=== PATIENT | female | born 1965 | race Two or more races ===

== ENCOUNTER 2024-03-08 13:07 | Outpatient (AMB) | payer BC, SELFPAY ==
[2024-03-08 13:18] VITALS: BP 136/71; PULSE 84; RESP 18; TEMP 35.9; O2SAT 95; BMI 30.2
--- NOTE | 2024-03-08 13:18 | PD.GSCLVISIT ---
[facility] - [facility] 03/08/24 13:18 Height 1.55 m Height Method Stated Weight 72.688 kg Weight Measurement Method Standing Scale BMI 30.2 BP 136/71 H Blood Pressure Source Automatic Cuff Blood Pressure Location Right Upper Arm Position Sitting Respiration 18 Pulse 84 Pulse Source Monitor Temp 96.7 F L Temp Source Temporal Artery Scan Pulse Oximetry (%) 95 Oxygen Delivery Method Room Air Med/Allergies Allergies & Medications Allergies nitrofurantoin [From Macrobid] Allergy (Mild, Verified 03/08/24 13:19) Fever Medication Reconciliation losartan 50 mg tablet 50 mg PO QDAY 06/11/19 [History Confirmed 03/08/24] metformin 1,000 mg tablet 1,000 mg PO BIDWM Diabetes 06/11/19 [History Confirmed 03/08/24] atorvastatin 10 mg tablet 10 mg PO QDAY 05/04/22 [History Confirmed 03/08/24] flecainide 100 mg tablet 100 mg PO BID 05/04/22 [History Confirmed 03/08/24] aspirin 81 mg tablet,delayed release 81 mg PO QDAY 02/24/24 [History Confirmed 03/08/24] oxycodone-acetaminophen 5 mg-325 mg tablet (Endocet) 1 tab PO Q6H PRN pain #10 tabs 03/02/24 [Rx Confirmed 03/08/24] MA Intake Visit Data Collection New Patient or Established: Established Patient (seen at [facility] within 3 years) Seen by Clinical Staff ONLY (RN/MA): No Pain Present Currently: No (SORENESS) Pain Location: Abdomen Pain scale:: 1 Blend Technician Required: No PCP or OBGYN visit in last 3 months: Yes Hx Now: No Do You Feel Safe at Home: Yes Authorities Contacted: N/A Smoking Status Smoking Status: Never smoker Immunization / Flu Flu Vaccine in the Last 12 Months: No Flu Vaccine Exclusion Criteria: No Exclusion Criteria Past Medical History Past Medical History NEUROLOGIC: Negative Neurological Disorders or Seizures CARDIAC: Positive Cardiac Disorders, Atrial Fibrillation, Hypercholesterolemia and Hypertension; Negative Congestive Heart Failure RESPIRATORY: Negative Chronic Obstructive Pulmonary Disease (COPD) GASTROINTESTINAL: Positive Gastrointestinal Disorders, Gall Bladder Disease, Diverticulitis and Obesity; Negative Hepatitis GENITOURINARY: Negative Genitourinary Disorders or Renal Disease REPRODUCTIVE: Negative Previous Pregnancies MUSCULOSKELETAL: Positive Arthritis ENDOCRINE: Positive Endocrine Disorders and Diabetes Mellitus Type 2; Negative Diabetes Mellitus Type 1 HEMATOLOGIC: Negative Blood Disorders OTHER HISTORY: Positive Hospitalization (A fib, surgery) and Chicken Pox; Negative Autoimmune Disease, Shingles, Blood Transfusions, Blood Transfusion Reaction, Anesthesia Reactions or Cancer Family History FAMILY HISTORY: Positive Family Cardiac Disorders, Family Cancer and Family Surgery; Negative Family Psychiatric Problems, Family Respiratory Disorders, Family Gastrointestinal Problems or Family Anesthesia Reaction Surgical History SURGICAL: Positive Bowel Surgery (colon resection) and Hysterectomy (BSO) Social History SMOKING STATUS: Smoking status: Never smoker ALCOHOL: Alcohol Intake: Never ALCOHOL FREQUENCY: Alcohol Intake Frequency: A Few Times a Month HOUSING: Housing: House LIVES WITH: Lives With: Family HPI HPI Narrative 58F s/p lap ana luisa 02/29/24 presenting for follow up. Pt reports for the last few days she has had intermittent bleeding from one edge of her epigastric incision; otherwise she feels well with pain controlled, no nausea, tolerating diet, having bouts of diarrhea which vary based on what she eats. No fever or jaundice ROS Review of Systems Systems Reviewed: All systems reviewed, normal except as documented Objective/Exam General General Appearance: alert, cooperative and well groomed Resp Respiratory exam: Absent respiratory distress Abdominal Abdominal exam: Present soft and incision (epigastric incision with ecchymosis similar to prior exam. At the left lateral aspect of the incision there is raw skin which appears erythematous, not actively bleeding now but I applied silver nitrate cautery to the area); Absent distention or tenderness Results Pathology of gallbladder: gangrenous acute and chronic cholecystitis with cholelithiasis Assessment & Plan Diagnosis / Problem List (1) Gangrenous cholecystitis: Status: Acute Plan 58F s/p lap ana luisa for gangrenous cholecystitis 02/28, recovering well overall with superficial bleeding of epigastric incision, cauterized today F/u in 2 weeks if needed Avoid strenuous activity for 6 weeks postop Orders: Orders Silver nitrate applicator topical stick Today Office Procedures GNS Level of Care Nursing/Assessment Patient Status: Established Patient Nursing Assessment/Reassesment: Medication Reconciliation, Update PMH in EMR and Vital Signs Coordination of Care: Complex Care and Chronic Disease 1-5, Education Complex Pt/Fam, Consent,records obtained, informed consent and Staff clarify orders Established Patient Charge Established Patient Point Assignment: 90 Established Patient Point Charge: EP Level 3 (80-115) Patient Portal Questionaires Social History Living Situation History Housing: House Tobacco History Smoking Status: Never smoker Alcohol History Alcohol Intake: Never Alcohol Intake Frequency: A Few Times a Month Domestic Abuse History Do You Feel Safe at Home: Yes Review of Systems Report any current symptoms Only answer those that you have currently: Past Medical History Past Medical History Have you ever been diagnosed with any of the following: Neurological Problems Seizures: No Cardiology Problems Atrial Fibrillation: Yes Hypercholesterolemia: Yes Congestive Heart Failure: No Hypertension: Yes Respiratory Problems Chronic Obstructive Pulmonary Disease (COPD): No Stomache/Intestinal Problems Hepatitis: No Gall Bladder Disease: Yes Diverticulitis: Yes Obesity: Yes Genital/Urinary Problems Renal Disease: No Reproductive Problems Previous Pregnancies: No Musculoskeletal Problems Arthritis: Yes Endocrine Problems Diabetes Mellitus Type 1: No Diabetes Mellitus Type 2: Yes Other Problems Hospitalization: Yes (A fib, surgery) Autoimmune Disease: No Shingles: No Blood Transfusions: No Blood Transfusion Reaction: No Anesthesia Reactions: No Chicken Pox: Yes Cancer: No Surgical History Hysterectomy: Yes (BSO)
== END 2024-03-08 13:39 | disposition home or self-care (01) ==
LOC: HODSRG 13:07
PROVIDERS: Supervising Provider Surgery; Visit Provider Surgery
DX: Z09 Encounter for follow-up examination after completed treatment for conditions other than malignant neoplasm (principal); Z90.49 Acquired absence of other specified parts of digestive tract
CPT/HCPCS: 99213; A9270; G0463

== ENCOUNTER 2024-03-19 10:06 | Outpatient (AMB) | payer BC, SELFPAY ==
[2024-03-19 10:22] VITALS: BP 133/74; PULSE 78; RESP 18; TEMP 36.3; O2SAT 99; BMI 30.3
--- NOTE | 2024-03-19 10:22 | PD.GSCLVISIT ---
Vital Signs - [facility] 03/19/24 10:22 Height 1.55 m Height Method Stated Weight 72.802 kg Weight Measurement Method Standing Scale BMI 30.3 BP 133/74 H Blood Pressure Source Automatic Cuff Blood Pressure Location Right Upper Arm Position Sitting Respiration 18 Pulse 78 Pulse Source Monitor Temp 97.4 F Temp Source Temporal Artery Scan Pulse Oximetry (%) 99 Oxygen Delivery Method Room Air Med/Allergies Allergies & Medications Allergies nitrofurantoin [From Macrobid] Allergy (Mild, Verified 03/19/24 10:22) Fever Medication Reconciliation losartan 50 mg tablet 50 mg PO QDAY 06/11/19 [History Confirmed 03/19/24] metformin 1,000 mg tablet 1,000 mg PO BIDWM Diabetes 06/11/19 [History Confirmed 03/19/24] atorvastatin 10 mg tablet 10 mg PO QDAY 05/04/22 [History Confirmed 03/19/24] flecainide 100 mg tablet 100 mg PO BID 05/04/22 [History Confirmed 03/19/24] aspirin 81 mg tablet,delayed release 81 mg PO QDAY 02/24/24 [History Confirmed 03/19/24] oxycodone-acetaminophen 5 mg-325 mg tablet (Endocet) 1 tab PO Q6H PRN pain #10 tabs 03/02/24 [Rx Confirmed 03/19/24] MA Intake Visit Data Collection New Patient or Established: Established Patient (seen at [facility] within 3 years) Reason for Visit:: F/U ON ABDOMEN PAIN Pain Present Currently: Yes Pain Location: Abdomen Pain scale:: 1 Pain Scale Used: Barker-Hawkins/Numerical Nursing Staffing Coordinator Required: No PCP or OBGYN visit in last 3 months: Yes Hx Now: No Do You Feel Safe at Home: Yes Authorities Contacted: N/A Smoking Status Smoking Status: Never smoker Immunization / Flu Flu Vaccine in the Last 12 Months: No Flu Vaccine Exclusion Criteria: No Exclusion Criteria Past Medical History Past Medical History NEUROLOGIC: Negative Neurological Disorders or Seizures CARDIAC: Positive Cardiac Disorders, Atrial Fibrillation, Hypercholesterolemia and Hypertension; Negative Congestive Heart Failure RESPIRATORY: Negative Chronic Obstructive Pulmonary Disease (COPD) GASTROINTESTINAL: Positive Gastrointestinal Disorders, Gall Bladder Disease, Diverticulitis and Obesity; Negative Hepatitis GENITOURINARY: Negative Genitourinary Disorders or Renal Disease REPRODUCTIVE: Negative Previous Pregnancies MUSCULOSKELETAL: Positive Arthritis ENDOCRINE: Positive Endocrine Disorders and Diabetes Mellitus Type 2; Negative Diabetes Mellitus Type 1 HEMATOLOGIC: Negative Blood Disorders OTHER HISTORY: Positive Hospitalization (A fib, surgery) and Chicken Pox; Negative Autoimmune Disease, Shingles, Blood Transfusions, Blood Transfusion Reaction, Anesthesia Reactions or Cancer Family History FAMILY HISTORY: Positive Family Cardiac Disorders, Family Cancer and Family Surgery; Negative Family Psychiatric Problems, Family Respiratory Disorders, Family Gastrointestinal Problems or Family Anesthesia Reaction Surgical History SURGICAL: Positive Bowel Surgery (colon resection) and Hysterectomy (BSO) Social History SMOKING STATUS: Smoking status: Never smoker SUBSTANCE USE: Substance use type: does not use ALCOHOL: Alcohol Intake: Never ALCOHOL FREQUENCY: Alcohol Intake Frequency: A Few Times a Month HOUSING: Housing: House LIVES WITH: Lives With: Family Travel Risk Travel Hx Recent Travel: No HPI HPI Narrative 58F s/p lap ana luisa 02/29/24 presenting for follow up. Pt had another episode of bleeding from her epigastric incision last week, she has been covering it with gauze and as of today there is scant bleeding. She feels well otherwise and is planning to return to work Thurs ROS Review of Systems Systems Reviewed: All systems reviewed, normal except as documented Objective/Exam General General Appearance: alert, cooperative and well groomed Resp Respiratory exam: Absent respiratory distress Abdominal Abdominal exam: Present soft and incision (epigastric incision with dehiscence at the left aspect, no active bleeding, no surrounding erythema, silver nitrate reapplied); Absent distention or tenderness Assessment & Plan Diagnosis / Problem List (1) Gangrenous cholecystitis: Status: Acute Plan 58F s/p lap ana luisa 02/29/24 presenting for follow up, recovering well overall F/u as needed Orders: Orders Silver nitrate applicator topical stick Today Office Procedures GNS Level of Care Nursing/Assessment Patient Status: Established Patient Nursing Assessment/Reassesment: Medication Reconciliation, Update PMH in EMR and Vital Signs Coordination of Care: Complex Care and Chronic Disease 1-5, Education Complex Pt/Fam, Consent,records obtained, informed consent, Results/Orders obtained and Staff clarify orders Established Patient Charge Established Patient Point Assignment: 95 Established Patient Point Charge: EP Level 3 (80-115) Surgical Proc/IM SQ injection Minor Surgical Procedure: Yes (SILVER NITRATE) Medication Given Medication Given Medication Given: Yes Documented Dose Given: 1 Route: Infiitration Office Meds silver nitrate applicators 75 %-25 % topical stick Performing Provider: Emily Case MD Performing Location: [facility] Administered by: Emily Case MD on 03/19/24 11:39 Dose Route Admin Location Dispensed Lot Number Expiration Date FORMERLY NAMED [facility] [employer] 1 ea topical 1 ea [id number] 06/22/24 [address]-6 [employer] Patient Portal Questionaires Social History Living Situation History Housing: House Tobacco History Smoking Status: Never smoker Alcohol History Alcohol Intake: Never Alcohol Intake Frequency: A Few Times a Month Domestic Abuse History Do You Feel Safe at Home: Yes Review of Systems Report any current symptoms Only answer those that you have currently: Past Medical History Past Medical History Have you ever been diagnosed with any of the following: Neurological Problems Seizures: No Cardiology Problems Atrial Fibrillation: Yes Hypercholesterolemia: Yes Congestive Heart Failure: No Hypertension: Yes Respiratory Problems Chronic Obstructive Pulmonary Disease (COPD): No Stomache/Intestinal Problems Hepatitis: No Gall Bladder Disease: Yes Diverticulitis: Yes Obesity: Yes Genital/Urinary Problems Renal Disease: No Reproductive Problems Previous Pregnancies: No Musculoskeletal Problems Arthritis: Yes Endocrine Problems Diabetes Mellitus Type 1: No Diabetes Mellitus Type 2: Yes Other Problems Hospitalization: Yes (A fib, surgery) Autoimmune Disease: No Shingles: No Blood Transfusions: No Blood Transfusion Reaction: No Anesthesia Reactions: No Chicken Pox: Yes Cancer: No Surgical History Hysterectomy: Yes (BSO)
== END 2024-03-19 11:04 | disposition home or self-care (01) ==
LOC: HODSRG 10:06
PROVIDERS: Supervising Provider Surgery; Visit Provider Surgery
DX: T81.31XA Disruption of external operation (surgical) wound, not elsewhere classified, initial encounter (principal); Y84.9 Medical procedure, unspecified as the cause of abnormal reaction of the patient, or of later complication, without mention of misadventure at the time of the procedure
CPT/HCPCS: 17250; 99213; A9270; G0463

== ENCOUNTER 2024-03-26 09:33 | Outpatient (AMB) | payer BC, SELFPAY ==
[2024-03-26 09:56] VITALS: BP 126/75; PULSE 81; RESP 19; TEMP 36.2; O2SAT 96
--- NOTE | 2024-03-26 09:56 | GSCOFFNT_ITS ---
Vital Signs - [facility] 03/26/24 09:56 Height 1.55 m Height Method Stated Weight 72.263 kg Weight Measurement Method Standing Scale BMI 30.0 BP 126/75 Blood Pressure Source Automatic Cuff Blood Pressure Location Right Upper Arm Position Sitting Respiration 19 Pulse 81 Pulse Source Monitor Temp 97.1 F Temp Source Temporal Artery Scan Pulse Oximetry (%) 96 Oxygen Delivery Method Room Air Med/Allergies Allergies & Medications Allergies nitrofurantoin [From Macrobid] Allergy (Mild, Verified 03/26/24 09:56) Fever Medication Reconciliation losartan 50 mg tablet 50 mg PO QDAY 06/11/19 [History Confirmed 03/26/24] metformin 1,000 mg tablet 1,000 mg PO BIDWM Diabetes 06/11/19 [History Confirmed 03/26/24] atorvastatin 10 mg tablet 10 mg PO QDAY 05/04/22 [History Confirmed 03/26/24] flecainide 100 mg tablet 100 mg PO BID 05/04/22 [History Confirmed 03/26/24] aspirin 81 mg tablet,delayed release 81 mg PO QDAY 02/24/24 [History Confirmed 03/26/24] oxycodone-acetaminophen 5 mg-325 mg tablet (Endocet) 1 tab PO Q6H PRN pain #10 tabs 03/02/24 [Rx Confirmed 03/26/24] cephalexin 500 mg tablet 500 mg PO Q12H #10 tabs 03/23/24 [Rx Confirmed 03/26/24] MA Intake Visit Data Collection New Patient or Established: Established Patient (seen at [facility] within 3 years) Seen by Clinical Staff ONLY (RN/MA): No Pain Present Currently: No Pinion And Wheel Truer Required: No PCP or OBGYN visit in last 3 months: Yes Hx Now: No Do You Feel Safe at Home: Yes Authorities Contacted: N/A Smoking Status Smoking Status: Never smoker Immunization / Flu Flu Vaccine in the Last 12 Months: No Flu Vaccine Exclusion Criteria: No Exclusion Criteria Past Medical History Past Medical History NEUROLOGIC: Negative Neurological Disorders or Seizures CARDIAC: Positive Cardiac Disorders, Atrial Fibrillation, Hypercholesterolemia and Hypertension; Negative Congestive Heart Failure RESPIRATORY: Negative Chronic Obstructive Pulmonary Disease (COPD) GASTROINTESTINAL: Positive Gastrointestinal Disorders, Gall Bladder Disease, Diverticulitis and Obesity; Negative Hepatitis GENITOURINARY: Negative Genitourinary Disorders or Renal Disease REPRODUCTIVE: Negative Previous Pregnancies MUSCULOSKELETAL: Positive Arthritis ENDOCRINE: Positive Endocrine Disorders and Diabetes Mellitus Type 2; Negative Diabetes Mellitus Type 1 HEMATOLOGIC: Negative Blood Disorders OTHER HISTORY: Positive Hospitalization (A fib, surgery) and Chicken Pox; Negative Autoimmune Disease, Shingles, Blood Transfusions, Blood Transfusion Reaction, Anesthesia Reactions or Cancer Family History FAMILY HISTORY: Positive Family Cardiac Disorders, Family Cancer and Family Surgery; Negative Family Psychiatric Problems, Family Respiratory Disorders, Family Gastrointestinal Problems or Family Anesthesia Reaction Surgical History SURGICAL: Positive Bowel Surgery (colon resection) and Hysterectomy (BSO) Social History SMOKING STATUS: Smoking status: Never smoker ALCOHOL: Alcohol Intake: Never ALCOHOL FREQUENCY: Alcohol Intake Frequency: A Few Times a Month HOUSING: Housing: House LIVES WITH: Lives With: Family HPI HPI Narrative 59F s/p anastacia ana luisa 02/29/24 presenting for follow up. Last week pt noted her epigastric incision opened a bit more, it is not draining or bleeding but because of mild surrounding erythema and necrotic tissue I prescribed PO antibio tics which she is taking still. She feels overall well with no complaints, has returned to work ROS Review of Systems Systems Reviewed: All systems reviewed, normal except as documented Objective/Exam General General Appearance: alert, cooperative and well groomed Resp Respiratory exam: Absent respiratory distress Abdominal Abdominal exam: Present soft and incision (epigastric incision with partial superficial dehiscence at the left lateral aspect, minimal necrotic tissue which was debrided bluntly, wound irrigated, mild surrounding erythema, no purulence or fluctuance); Absent distention or tenderness Assessment & Plan Diagnosis / Problem List (1) Wound dehiscence, surgical: Status: Acute Assessment & Plan: 59F s/p lap ana luisa 02/29/24 with superficial dehiscence of epigastric incision. As there is mild erythema and there was some necrotic tissue in the wound I explained to pt it is preferable to pack the wound rather than to suture it and cause infection. I instructed how to perform wet-dry packing changes and pt expressed understanding, will follow up next week Office Procedures GNS Level of Care Nursing/Assessment Patient Status: Established Patient Nursing Assessment/Reassesment: Medication Reconciliation, Update PMH in EMR and Vital Signs Coordination of Care: Complex Care and Chronic Disease 1-5, Education Complex Pt/Fam, Consent,records obtained, informed consent and Staff clarify orders Established Patient Charge Established Patient Point Assignment: 90 Established Patient Point Charge: EP Level 3 (80-115) Patient Portal Questionaires Social History Living Situation History Housing: House Tobacco History Smoking Status: Never smoker Alcohol History Alcohol Intake: Never Alcohol Intake Frequency: A Few Times a Month Domestic Abuse History Do You Feel Safe at Home: Yes Review of Systems Report any current symptoms Only answer those that you have currently: Past Medical History Past Medical History Have you ever been diagnosed with any of the following: Neurological Problems Seizures: No Cardiology Problems Atrial Fibrillation: Yes Hypercholesterolemia: Yes Congestive Heart Failure: No Hypertension: Yes Respiratory Problems Chronic Obstructive Pulmonary Disease (COPD): No Stomache/Intestinal Problems Hepatitis: No Gall Bladder Disease: Yes Diverticulitis: Yes Obesity: Yes Genital/Urinary Problems Renal Disease: No Reproductive Problems Previous Pregnancies: No Musculoskeletal Problems Arthritis: Yes Endocrine Problems Diabetes Mellitus Type 1: No Diabetes Mellitus Type 2: Yes Other Problems Hospitalization: Yes (A fib, surgery) Autoimmune Disease: No Shingles: No Blood Transfusions: No Blood Transfusion Reaction: No Anesthesia Reactions: No Chicken Pox: Yes Cancer: No Surgical History Hysterectomy: Yes (BSO)
== END 2024-03-26 10:12 | disposition home or self-care (01) ==
LOC: HODSRG 09:33
PROVIDERS: Supervising Provider Surgery; Visit Provider Surgery
DX: T81.31XD Disruption of external operation (surgical) wound, not elsewhere classified, subsequent encounter (principal); Y84.9 Medical procedure, unspecified as the cause of abnormal reaction of the patient, or of later complication, without mention of misadventure at the time of the procedure
CPT/HCPCS: 99213; G0463

== ENCOUNTER 2024-04-05 10:49 | Outpatient (AMB) | payer BC, SELFPAY ==
--- NOTE | 2024-04-05 11:00 | PD.GSCLVISIT ---
Vital [facility] - [facility] 04/05/24 11:01 Height 1.55 m Height Method Stated Weight 71.668 kg Weight Measurement Method Standing Scale BMI 29.8 BP 127/77 Blood Pressure Source Automatic Cuff Blood Pressure Location Right Upper Arm Position Sitting Respiration 18 Pulse 75 Pulse Source Monitor Temp 97.5 F Temp Source Temporal Artery Scan Pulse Oximetry (%) 96 Oxygen Delivery Method Room Air Med/Allergies Allergies & Medications Allergies nitrofurantoin [From Macrobid] Allergy (Mild, Verified 04/05/24 11:02) Fever Medication Reconciliation losartan 50 mg tablet 50 mg PO QDAY 06/11/19 [History Confirmed 04/05/24] metformin 1,000 mg tablet 1,000 mg PO BIDWM Diabetes 06/11/19 [History Confirmed 04/05/24] atorvastatin 10 mg tablet 10 mg PO QDAY 05/04/22 [History Confirmed 04/05/24] flecainide 100 mg tablet 100 mg PO BID 05/04/22 [History Confirmed 04/05/24] aspirin 81 mg tablet,delayed release 81 mg PO QDAY 02/24/24 [History Confirmed 04/05/24] oxycodone-acetaminophen 5 mg-325 mg tablet (Endocet) 1 tab PO Q6H PRN pain #10 tabs 03/02/24 [Rx Confirmed 04/05/24] cephalexin 500 mg tablet 500 mg PO Q12H #10 tabs 03/23/24 [Rx Confirmed 04/05/24] MA Intake Visit Data Collection New Patient or Established: Established Patient (seen at [facility] within 3 years) Seen by Clinical Staff ONLY (RN/MA): No Reason for Visit:: F/U WOUND Pain Present Currently: No Pain scale:: 0 Rv Mechanic Required: No PCP or OBGYN visit in last 3 months: Yes Hx Now: No Do You Feel Safe at Home: Yes Authorities Contacted: N/A Smoking Status Smoking Status: Never smoker Immunization / Flu Flu Vaccine in the Last 12 Months: No Flu Vaccine Exclusion Criteria: Already Received Past Medical History Past Medical History NEUROLOGIC: Negative Neurological Disorders or Seizures CARDIAC: Positive Cardiac Disorders, Atrial Fibrillation, Hypercholesterolemia and Hypertension; Negative Congestive Heart Failure RESPIRATORY: Negative Chronic Obstructive Pulmonary Disease (COPD) GASTROINTESTINAL: Positive Gastrointestinal Disorders, Gall Bladder Disease, Diverticulitis and Obesity; Negative Hepatitis GENITOURINARY: Negative Genitourinary Disorders or Renal Disease REPRODUCTIVE: Negative Previous Pregnancies MUSCULOSKELETAL: Positive Arthritis ENDOCRINE: Positive Endocrine Disorders and Diabetes Mellitus Type 2; Negative Diabetes Mellitus Type 1 HEMATOLOGIC: Negative Blood Disorders OTHER HISTORY: Positive Hospitalization (A fib, surgery) and Chicken Pox; Negative Autoimmune Disease, Shingles, Blood Transfusions, Blood Transfusion Reaction, Anesthesia Reactions or Cancer Family History FAMILY HISTORY: Positive Family Cardiac Disorders, Family Cancer and Family Surgery; Negative Family Psychiatric Problems, Family Respiratory Disorders, Family Gastrointestinal Problems or Family Anesthesia Reaction Surgical History SURGICAL: Positive Bowel Surgery (colon resection) and Hysterectomy (BSO) Social History SMOKING STATUS: Smoking status: Never smoker ALCOHOL: Alcohol Intake: Never ALCOHOL FREQUENCY: Alcohol Intake Frequency: A Few Times a Month HOUSING: Housing: House LIVES WITH: Lives With: Family HPI HPI Narrative 59F s/p anastacia ana luisa 02/29/24 presenting for follow up of her epigastric incision. Pt has been packing the wound daily at my instruction, reports feeling well overall with no new complaints ROS Review of Systems Systems Reviewed: All systems reviewed, normal except as documented Objective/Exam General General Appearance: alert, cooperative and well groomed Resp Respiratory exam: Absent respiratory distress Abdominal Abdominal exam: Present soft and incision (epigastric incision with superficial dehiscence at the left lateral aspect; no necrotic tissue, minimal surrounding erythema and minimal serosanguinous drainage on gauze); Absent distention or tenderness Assessment & Plan Diagnosis / Problem List (1) Wound dehiscence, surgical: Status: Acute Assessment & Plan: 59F s/p lap ana luisa 02/29/24 with small dehiscence of epigastric incision, otherwise recovering well. Today I repeated silver nitrate to the wound to facilitate healing, will follow up in 3 weeks Orders: Orders Silver nitrate applicator topical stick Today Office Procedures GNS Level of Care Nursing/Assessment Patient Status: Established Patient Nursing Assessment/Reassesment: Medication Reconciliation, Update PMH in EMR and Vital Signs Coordination of Care: Complex Care and Chronic Disease 1-5, Education Complex Pt/Fam, Consent,records obtained, informed consent and Staff clarify orders Established Patient Charge Established Patient Point Assignment: 90 Established Patient Point Charge: EP Level 3 (80-115) Surgical Proc/IM SQ injection Minor Surgical Procedure: Yes (SILVER NITRATE) Medication Given Medication Given Medication Given: Yes Documented Dose Given: 1 Route: Infiitration Office Meds silver nitrate applicators 75 %-25 % topical stick Performing Provider: Emily Case MD Performing Location: [facility] Administered by: Emily Case MD on 04/05/24 11:42 Dose Route Admin Location Dispensed Lot Number Expiration Date [facility] Bar[employer] Line [employer] 1 ea topical 1 ea [id number] 06/22/24 [id number] [employer] Patient Portal Questionaires Social History Living Situation History Housing: House Tobacco History Smoking Status: Never smoker Alcohol History Alcohol Intake: Never Alcohol Intake Frequency: A Few Times a Month Domestic Abuse History Do You Feel Safe at Home: Yes Review of Systems Report any current symptoms Only answer those that you have currently: Past Medical History Past Medical History Have you ever been diagnosed with any of the following: Neurological Problems Seizures: No Cardiology Problems Atrial Fibrillation: Yes Hypercholesterolemia: Yes Congestive Heart Failure: No Hypertension: Yes Respiratory Problems Chronic Obstructive Pulmonary Disease (COPD): No Stomache/Intestinal Problems Hepatitis: No Gall Bladder Disease: Yes Diverticulitis: Yes Obesity: Yes Genital/Urinary Problems Renal Disease: No Reproductive Problems Previous Pregnancies: No Musculoskeletal Problems Arthritis: Yes Endocrine Problems Diabetes Mellitus Type 1: No Diabetes Mellitus Type 2: Yes Other Problems Hospitalization: Yes (A fib, surgery) Autoimmune Disease: No Shingles: No Blood Transfusions: No Blood Transfusion Reaction: No Anesthesia Reactions: No Chicken Pox: Yes Cancer: No Surgical History Hysterectomy: Yes (BSO)
[2024-04-05 11:01] VITALS: BP 127/77; PULSE 75; RESP 18; TEMP 36.4; O2SAT 96; BMI 29.8
== END 2024-04-05 11:21 | disposition home or self-care (01) ==
LOC: HODSRG 10:49
PROVIDERS: Supervising Provider Surgery; Visit Provider Surgery
DX: T81.31XA Disruption of external operation (surgical) wound, not elsewhere classified, initial encounter (principal); Y84.9 Medical procedure, unspecified as the cause of abnormal reaction of the patient, or of later complication, without mention of misadventure at the time of the procedure
CPT/HCPCS: 17250; 99213; A9270; G0463

== ENCOUNTER 2024-04-26 09:52 | Outpatient (AMB) | payer BC, SELFPAY ==
[2024-04-26 10:01] VITALS: BP 150/73; PULSE 79; RESP 18; TEMP 36.3; O2SAT 97; BMI 29.9
--- NOTE | 2024-04-26 10:01 | GSCOFFNT_ITS ---
Vital Signs - [facility] 04/26/24 10:01 Height 1.55 m Height Method Stated Weight 71.838 kg Weight Measurement Method Standing Scale BMI 29.9 BP 150/73 H Blood Pressure Source Automatic Cuff Blood Pressure Location Right Upper Arm Position Sitting Respiration 18 Pulse 79 Pulse Source Monitor Temp 97.3 F Temp Source Oral Pulse Oximetry (%) 97 Oxygen Delivery Method Room Air Med/Allergies Allergies & Medications Allergies nitrofurantoin [From Macrobid] Allergy (Mild, Verified 04/26/24 10:03) Fever Medication Reconciliation losartan 50 mg tablet 50 mg PO QDAY 06/11/19 [History Confirmed 04/26/24] metformin 1,000 mg tablet 1,000 mg PO BIDWM Diabetes 06/11/19 [History Confirmed 04/26/24] atorvastatin 10 mg tablet 10 mg PO QDAY 05/04/22 [History Confirmed 04/26/24] flecainide 100 mg tablet 100 mg PO BID 05/04/22 [History Confirmed 04/26/24] aspirin 81 mg tablet,delayed release 81 mg PO QDAY 02/24/24 [History Confirmed 04/26/24] oxycodone-acetaminophen 5 mg-325 mg tablet (Endocet) 1 tab PO Q6H PRN pain #10 tabs 03/02/24 [Rx Confirmed 04/26/24] cephalexin 500 mg tablet 500 mg PO Q12H #10 tabs 03/23/24 [Rx Confirmed 04/26/24] MA Intake Visit Data Collection New Patient or Established: Established Patient (seen at [facility] within 3 years) Reason for Visit:: F/U ON WOUND Pain Present Currently: Yes Pain Location: Abdomen Pain scale:: 3 (ACHING PAIN) Pain Scale Used: BarkerMaynor/Numerical Palliative Care Specialist Required: No PCP or OBGYN visit in last 3 months: Yes Hx Now: No Do You Feel Safe at Home: Yes Authorities Contacted: N/A Smoking Status Smoking Status: Never smoker Immunization / Flu Flu Vaccine in the Last 12 Months: No Flu Vaccine Exclusion Criteria: No Exclusion Criteria Past Medical History Past Medical History NEUROLOGIC: Negative Neurological Disorders or Seizures CARDIAC: Positive Cardiac Disorders, Atrial Fibrillation, Hypercholesterolemia and Hypertension; Negative Congestive Heart Failure RESPIRATORY: Negative Chronic Obstructive Pulmonary Disease (COPD) GASTROINTESTINAL: Positive Gastrointestinal Disorders, Gall Bladder Disease, Di verticulitis and Obesity; Negative Hepatitis GENITOURINARY: Negative Genitourinary Disorders or Renal Disease REPRODUCTIVE: Negative Previous Pregnancies MUSCULOSKELETAL: Positive Arthritis ENDOCRINE: Positive Endocrine Disorders and Diabetes Mellitus Type 2; Negative Diabetes Mellitus Type 1 HEMATOLOGIC: Negative Blood Disorders OTHER HISTORY: Positive Hospitalization (A fib, surgery) and Chicken Pox; Negative Autoimmune Disease, Shingles, Blood Transfusions, Blood Transfusion Reaction, Anesthesia Reactions or Cancer Family History FAMILY HISTORY: Positive Family Cardiac Disorders, Family Cancer and Family Surgery; Negative Family Psychiatric Problems, Family Respiratory Disorders, Family Gastrointestinal Problems or Family Anesthesia Reaction Surgical History SURGICAL: Positive Bowel Surgery (colon resection) and Hysterectomy (BSO) Social History SMOKING STATUS: Smoking status: Never smoker ALCOHOL: Alcohol Intake: Never ALCOHOL FREQUENCY: Alcohol Intake Frequency: A Few Times a Month HOUSING: Housing: House LIVES WITH: Lives With: Family HPI HPI Narrative 59F s/p anastacia orosco 02/29/24 presenting for follow up of her epigastric incision. Pt reports feeling well overall, the wound is lashaun a bit and is not currently draining. She stopped covering it because the dressings were becoming bothersome. Pt reports still having some pain with deep breaths but otherwise has no complaints ROS Review of Systems Systems Reviewed: All systems reviewed, normal except as documented Objective/Exam General General Appearance: alert, cooperative and well groomed Resp Respiratory exam: Absent respiratory distress Abdominal Abdominal exam: Present soft and incision (epigastric incision with superficial dehiscence at left lateral aspect, no surrounding erythema, no fluctuance or tenderness. Steri strip placed); Absent distention or tenderness Assessment & Plan Diagnosis / Problem List (1) Wound dehiscence, surgical: Status: Acute Assessment & Plan: 59F s/p anastacia orosco 02/29/24 presenting for follow up of her epigastric incision, recovering well overall with steri strip placed Plan: Follow up as needed Office Procedures GNS Level of Care Nursing/Assessment Patient Status: Established Patient Nursing Assessment/Reassesment: Medication Reconciliation, Update PMH in EMR and Vital Signs Coordination of Care: Complex Care and Chronic Disease 1-5, Education Complex Pt/Fam, Consent,records obtained, informed consent, Results/Orders obtained and Staff clarify orders Established Patient Charge Established Patient Point Assignment: 95 Established Patient Point Charge: EP Level 3 (80-115) Patient Portal Questionaires Social History Living Situation History Housing: House Tobacco History Smoking Status: Never smoker Alcohol History Alcohol Intake: Never Alcohol Intake Frequency: A Few Times a Month Domestic Abuse History Do You Feel Safe at Home: Yes Review of Systems Report any current symptoms Only answer those that you have currently: Past Medical History Past Medical History Have you ever been diagnosed with any of the following: Neurological Problems Seizures: No Cardiology Problems Atrial Fibrillation: Yes Hypercholesterolemia: Yes Congestive Heart Failure: No Hypertension: Yes Respiratory Problems Chronic Obstructive Pulmonary Disease (COPD): No Stomache/Intestinal Problems Hepatitis: No Gall Bladder Disease: Yes Diverticulitis: Yes Obesity: Yes Genital/Urinary Problems Renal Disease: No Reproductive Problems Previous Pregnancies: No Musculoskeletal Problems Arthritis: Yes Endocrine Problems Diabetes Mellitus Type 1: No Diabetes Mellitus Type 2: Yes Other Problems Hospitalization: Yes (A fib, surgery) Autoimmune Disease: No Shingles: No Blood Transfusions: No Blood Transfusion Reaction: No Anesthesia Reactions: No Chicken Pox: Yes Cancer: No Surgical History Hysterectomy: Yes (BSO)
== END 2024-04-26 10:10 | disposition home or self-care (01) ==
LOC: HODSRG 09:52
PROVIDERS: Supervising Provider Surgery; Visit Provider Surgery
DX: T81.31XD Disruption of external operation (surgical) wound, not elsewhere classified, subsequent encounter (principal); Y84.9 Medical procedure, unspecified as the cause of abnormal reaction of the patient, or of later complication, without mention of misadventure at the time of the procedure
CPT/HCPCS: 99213; G0463

== ENCOUNTER → 2024-04-26 | Outpatient (CLI) | payer BC, SELFPAY ==
[2024-04-26 11:20] LABS: Collection Type, Urine Clean Catch
[2024-04-26 11:46] LABS: Basophils # (Auto) 0.1 Thou/mm3 (0.0-0.2); Basophils % (Auto) 1 % (0-2.5); Eosinophils # (Auto) 0.1 Thou/mm3 (0.0-0.5); Eosinophils % (Auto) 1 % (0-10); Immature Granulocytes % (Auto) 0 % (0-0); Immature Granulocytes Auto 0.02 Thou/mm3 (0.00-0.00); Lymphocytes # (Auto) 2.5 Thou/mm3 (1.0-4.8); Lymphocytes % (Auto) 29 % (10-50); Mean Corpuscular HGB Conc 33.3 g/dl (31.0-37.0); Mean Corpuscular Hemoglobin 28.5 pg (25.0-35.0); Mean Corpuscular Volume 86 fL (80-100); Monocytes # (Auto) 0.5 Thou/mm3 (0.0-0.8); Monocytes % (Auto) 6 % (0-12); Neutrophils # (Auto) 5.4 Thou/mm3 (1.8-7.7); Neutrophils % (Auto) 63 % (37-80); Nucleated Red Blood Cell % 0 /100 WBC (0); Platelet Count 395 Thou/mm3 (140-440); RDW Standard Deviation 41.4 fL (36.4-46.3); Red Blood Count 4.21 Miln/mm3 (4.00-5.20); White Blood Count 8.6 Thou/mm3 (3.6-11.0)
[2024-04-26 12:00] LABS: Glucose Estimated Average 111 mg/dL (80-131); Hemoglobin A1C 5.5 % Hgb (4.8-6.0)
[2024-04-26 12:06] LABS: Bacteria,Urine Rare; Bilirubin,Urine Negative (Negative); Blood,Urine Negative (Negative); Clarity,Urine Clear (Clear/Hazy); Color,Urine Colorless (Lt Yel-Yel); Culture Indicated,Urine Not Indicated; Glucose, Urine Negative (Negative); Ketones,Urine Negative (Negative); Leukocyte Esterase,Urine Negative (Negative); Nitrite,Urine Negative (Negative); PH,Urine 6.5 (5.0-7.0); Protein,Urine Negative (Neg - Trace); RBC,Urine 1 /hpf (0-3); Specific Gravity,Urine 1.004 (1.001-1.035); Squamous Epithelial Cell,Urine 1 /hpf (0-5); Urobilinogen,Urine Negative mg/dL (0.0-1.0); WBC,Urine < 1 /hpf (0-5)
[2024-04-26 12:08] LABS: Creatinine MALB Rnd Ur 16 mg/dL (30-125); Microalbumin, Random Urine < 3 mg/L (0-300)
[2024-04-26 12:09] LABS: Alanine Aminotransferase 23 U/L (10-49); Albumin, Serum 4.9 gm/dL (3.5-5.0); Albumin/Globulin Ratio 2.2 (1.2-2.2); Alkaline Phosphatase 116 U/L (46-116); Anion Gap 7 (7-16); Aspartate Amino Transferase 25 U/L (0-34); BUN/Creatinine Ratio 16 Ratio (12-20); Bilirubin,Total 1.3 mg/dL (0.3-1.2); Blood Urea Nitrogen 8 mg/dL (9-23); Calcium 9.9 mg/dL (8.3-10.6); Calcium (Corrected) 9.9 mg/dL (8.5-10.1); Carbon Dioxide 30.1 mMol/L (20.0-31.0); Cardiac Risk Estimate 2.3 RATIO (3.7-5.6); Chloride 101 mMol/L (98-107); Cholesterol 144 mg/dL (132-200); Creatinine (Component) 0.5 mg/dL (0.6-1.3); Globulin 2.2 gm/dL (2.3-3.5); Glucose 100 mg/dL (74-106); HDL Cholesterol 64 mg/dL (40-60); LDL Cholesterol,Calculated 49 mg/dL (0-130); Osmolality,Calculated 273 (275-295); Potassium 4.3 mMol/L (3.4-5.1); Sodium 138 mMol/L (136-145); Thyroid Stimulating Hormone 1.04 uIU/mL (0.55-4.78); Total Protein 7.1 gm/dL (5.7-8.2); Triglycerides 154 mg/dL (30-150); eGFR > 60 See Note
[2024-04-26 12:22] LABS: Vitamin B12 264 pg/mL (211-911); Vitamin D 25 Hydroxy Total 33.2 ng/mL (7.3-40.2)
== END | disposition home or self-care (01) ==
PROVIDERS: PCP Registered Nurse; Referring Provider Registered Nurse; Visit Provider Registered Nurse
DX: Z00.00 Encounter for general adult medical examination without abnormal findings (principal); E11.9 Type 2 diabetes mellitus without complications; E78.5 Hyperlipidemia, unspecified
CPT/HCPCS: 36415; 80053; 80061; 81001; 82043; 82306; 82570; 82607; 83036; 84443; 85025

== ENCOUNTER → 2024-07-24 | Outpatient (CLI) | payer BC, SELFPAY ==
--- NOTE | 2024-07-24 08:15 | XR_ITS ---
Examination: Screening digital mammography, bilateral Computer aided detection 3-D breast Tomosynthesis, bilateral Date and time of exam: July 24, 2024 0819 hours Compared to mammograms dating to April 21, 2020 Indication: Screening Technique: Nonmagnified MLO, CC views of the breasts to been obtained, reconstructed from 3-D Tomosynthesis images. R2 computer aided detection program utilized for evaluation of suspicious masses and/or abnormal calcifications. 3-D Tomosynthesis images obtained. Findings: The breasts are heterogeneously dense, which may obscure small masses The breast architecture is nodular Benign calcifications No definite suspicious masses Impression: BI-RADS category II: Benign Findings. Recommend 1 year follow-up mammogram. Recommend baseline bilateral breast sonography follow-up given the nodular heterogeneously dense breast architecture
== END | disposition home or self-care (01) ==
LOC: CDIM 08:01
PROVIDERS: PCP Registered Nurse; Referring Provider Registered Nurse; Visit Provider Registered Nurse
DX: Z12.31 Encounter for screening mammogram for malignant neoplasm of breast (principal); R92.323 Mammographic fibroglandular density, bilateral breasts; R92.8 Other abnormal and inconclusive findings on diagnostic imaging of breast
CPT/HCPCS: 77063; 77067

== ENCOUNTER → 2024-07-31 | Outpatient (CLI) | payer BC, SELFPAY ==
--- NOTE | 2024-07-31 15:30 | XR_ITS ---
Examination: Breast ultrasound complete, bilateral Date and time of exam: July 31, 2024 1458 hrs. Indications: Nodular heterogeneous breast architecture on mammogram July 24, 2024 Technique: Real-time grayscale ultrasonographic imaging bilateral breasts, including all 4 quadrants as well as nipple retroareolar and axillary regions. Findings: No cystic or solid mass involving either breast Impression: BI-RADS Category 1: Negative study
== END | disposition home or self-care (01) ==
PROVIDERS: PCP Registered Nurse; Referring Provider Registered Nurse; Visit Provider Registered Nurse
DX: R92.30 Dense breasts, unspecified (principal)
CPT/HCPCS: 76641

== ENCOUNTER → 2024-10-26 | Outpatient (CLI) | payer BC, SELFPAY ==
[2024-10-26 08:45] LABS: Glucose Estimated Average 117 mg/dL (80-131); Hemoglobin A1C 5.7 % Hgb (4.8-6.0)
[2024-10-26 08:53] LABS: Alanine Aminotransferase 17 U/L (10-49); Albumin, Serum 4.9 gm/dL (3.5-5.0); Albumin/Globulin Ratio 2.1 (1.2-2.2); Alkaline Phosphatase 102 U/L (46-116); Anion Gap 13 (7-16); Aspartate Amino Transferase 21 U/L (0-34); BUN/Creatinine Ratio 16 Ratio (12-20); Blood Urea Nitrogen 8 mg/dL (9-23); Calcium 9.8 mg/dL (8.3-10.6); Calcium (Corrected) 9.8 mg/dL (8.5-10.1); Carbon Dioxide 29.2 mMol/L (20.0-31.0); Cardiac Risk Estimate 2.3 RATIO (3.7-5.6); Chloride 104 mMol/L (98-107); Cholesterol 161 mg/dL (132-200); Creatinine (Component) 0.5 mg/dL (0.6-1.3); Globulin 2.3 gm/dL (2.3-3.5); Glucose 93 mg/dL (74-106); HDL Cholesterol 69 mg/dL (40-60); LDL Cholesterol,Calculated 49 mg/dL (0-130); Osmolality,Calculated 288 (275-295); Sodium 146 mMol/L (136-145); Total Protein 7.2 gm/dL (5.7-8.2); Triglycerides 214 mg/dL (30-150); eGFR > 60 See Note
== END | disposition home or self-care (01) ==
LOC: COPL 07:22
PROVIDERS: PCP Family Medicine; Referring Provider Registered Nurse; Visit Provider Registered Nurse
DX: E11.9 Type 2 diabetes mellitus without complications (principal); E78.5 Hyperlipidemia, unspecified
CPT/HCPCS: 36415; 80053; 80061; 83036

== ENCOUNTER 2025-03-03 13:08 | Emergency (ER) | payer BC, SELFPAY ==
[2025-03-03 15:03] VITALS: BP 176/90; PULSE 96; RESP 20; TEMP 36.8; O2SAT 95; BMI 30.4
--- NOTE | 2025-03-03 15:10 | EKG_ITS ---
[facility] Test Date: 2025-03-03 Pat Name: CRYSTAL CENTENO Department: Room: - Gender: Female Applications Development Consultant: : 1965 Requested By: Luis Krishnan Order Number: [id number] Reading MD: Luis Krishnan Measurements Intervals [place] Rate: 91 P: 48 DE: 157 QRS: 3 QRSD: 89 T: 29 QT: 369 QTc: 456 Interpretive Statements SINUS RHYTHM Compared to ECG 02/24/2024 09:52:53 T-wave abnormality no longer present /store/S0/[id number]/ecg/[id number].pdf
--- NOTE | 2025-03-03 15:20 | PD.EDADULT ---
ED General RME/HPI General Chief complaint: General Adult/Misc Complain Stated complaint: FEELING OFF ALL DAY , HEART RATE ELEVATED (114) Time Seen by Provider: 03/03/25 14:05 Arrival date/time: 03/03/25 13:08 RME / HPI RME / HPI narrative: Ellen is a 59 y/o female with PMHx paroxysmal A-fib (on flecainide, no anticoagulation), hypertension, hyperlipidemia, [id number] type 2 diabetes mellitus who comes in for an evaluation of elevated heart rate and generalized weakness and dizziness, onset a couple of days ago. Patient reports that she has been under a lot of stress recently as she recently had a family member recently. Her heart rate usually runs in the 80s at home, however lately she has had a couple of readings where it has been high as 115. She was diagnosed with paroxysmal atrial fibrillation about 4 years ago according to her. Her client insights consultant is Dr. Clements in [place]. She denies any thyroid history at this time. She reports that she has had echocardiograms done in the past, however she denies any history of stress test or coronary angiograms. Denies any recent travel. Her caffeine intake is about a couple of sodas a day, no coffee or tea. Denies any recent sick contacts. Denies chest pain, shortness of breath, numbness, tingling, headache, diaphoresis. No other complaints at this time. Related Data Home Medications ?Medication ?Instructions ?Recorded ?Confirmed losartan 50 mg tablet 50 mg PO QDAY 06/11/19 04/26/24 metformin 1,000 mg tablet 1,000 mg PO BIDWM Diabetes 06/11/19 04/26/24 atorvastatin 10 mg tablet 10 mg PO QDAY 05/04/22 04/26/24 flecainide 100 mg tablet 100 mg PO BID 05/04/22 04/26/24 aspirin 81 mg tablet,delayed 81 mg PO QDAY 02/24/24 04/26/24 release Previous Rx's ?Medication ?Instructions ?Recorded oxycodone-acetaminophen 5 mg-325 1 tab PO Q6H PRN pain #10 tabs 03/02/24 mg tablet (Endocet) cephalexin 500 mg tablet 500 mg PO Q12H #10 tabs 03/23/24 Allergies Allergy/AdvReac Type Severity Reaction Status Date / Time nitrofurantoin (From Allergy Mild Fever Verified 03/03/25 13:12 Macrobid) Review of Systems Review of Systems Narrative Review of Systems: 12 point ROS reviewed and is otherwise negative unless stated directly in the HPI ED Exam Narrative Physical exam: General: AAOx3, NAD, HEENT: Moist mucous membranes, conjunctiva clear, EOMI, PERRLA, Cardiovascular: S1, S2, radial pulses +2 bilat, RRR Pulmonary: CTAB bilat no cough, no wheezing GI: No tenderness to light or deep palpitation, no guarding, rigidity, rebound tenderness or distension Extremities: No presence of trace or pitting edema in lower extremities bilaterally, dorsalis pedis pulses +2 bilaterally, tattoo by L ankle Neuro: AAOx3, no focal motor or sensory deficits in the UE or LE bilat Psych: Good judgement, thought and behavior Course Quality Measures none Orders Category Date Time Status Bedside COVID-19 Antigen Test NOW Care 03/03/25 15:11 Active EKG (ED ONLY) *Do not use* NOW Care 03/03/25 15:10 Completed EKG (ED Only) Stat Exams 03/03/25 15:10 Draft CBC Stat Lab 03/03/25 15:23 Completed CMP [Comprehensive Metabolic Panel] Stat Lab 03/03/25 15:23 Completed Drug Screen,Urine Stat Lab 03/03/25 15:21 Completed Free T4 (Free Thyroxine) Stat Lab 03/03/25 15:23 Completed Influenza A & B Rapid Panel Stat Lab 03/03/25 15:28 Completed Mag [Magnesium] Stat Lab 03/03/25 15:23 Completed TSH [Thyroid Stimulating Hormone] Stat Lab 03/03/25 15:23 Completed Troponin I Stat Lab 03/03/25 15:23 Completed Urinalysis, C/S if Indicated Stat Lab 03/03/25 15:21 Completed Magnesium Oxide [Mag-Ox 400] Med 03/03/25 15:52 Discontinued 400 mg PO X1 ONE cloNIDine HCL [Catapres] Med 03/03/25 15:23 Discontinued 0.1 mg PO X1 ONE Vital Signs Vital signs: Vital Signs Temperature 98.3 F 03/03/25 15:03 Pulse Rate 96 03/03/25 15:03 Respiratory Rate 20 03/03/25 15:03 Blood Pressure 176/90 H 03/03/25 15:03 Pulse Oximetry (%) 95 03/03/25 15:03 Oxygen Delivery Method Room Air 03/03/25 15:03 Discharge Plan Plan Patient Disposition: HOME (Self Care) Prescriptions/Referrals Prescriptions/Med Rec: No Action losartan 50 mg Tablet 50 mg PO QDAY metformin 1,000 mg Tablet 1,000 mg PO BIDWM oxycodone-acetaminophen [Endocet] 5-325 mg tablet 1 tab PO Q6H MDD 6 tabs PRN (Reason: pain) Qty: 10 0RF cephalexin 500 mg tablet 500 mg PO Q12H Qty: 10 0RF atorvastatin 10 mg tablet 10 mg PO QDAY Patient Comments: TAKE 1 TABLET BY MOUTH EVERY DAY flecainide 100 mg tablet 100 mg PO BID Patient Comments: TAKE 1 TABLET BY MOUTH TWICE A DAY aspirin 81 mg Tablet,Delayed Release (Dr/Ec) 81 mg PO QDAY Referrals: Naomie Durham NP [Primary Care Provider] - In 1 week Problem List Clinical Impression: Anxiety Patient/Caregiver Discharge Instructions Education Materials: ED Anxiety Reaction Additional Instructions: Discharge instructions Follow-up with your PCP within 1 week Take your medicines as prescribed Speak with your primary care doctor regards to management if needed for antihypertensive Make sure you ensure to have a blood pressure log and measure your blood pressure daily in addition to your heart rate Encourage more oral hydration If you begin having severe chest pain or feel like your heart is fluttering, return to the ED Follow-up with your client insights consultant in regards to your atrial fibrillation and consider starting an anticoagulant if needed. Return to ED if your symptoms worsen or return Print Language: Guinean Stand Alone Forms: Lina Award Info., Patient Portal Info Letter MDM Narrative MDM hospital course (for use when minimal MDM required): 1525: EKG, basic labs, clonidine 0.1 mg x 1, TSH, urinalysis, UDS, bedside COVID, rapid influenza. 1727: Labs wnl, t bili 1.6 however seems to be around here baseline, UA negative, UDS negative, COVID and influenza negative, SBP 129 currently. Patient is medically clear for discharge at this time. Patient is recommended to follow-up with her PCP in regards to further management of her blood pressure and antihypertensives. She is also instructed to return back to the ER if her symptoms return. This is likely related to stress as she is recently going through a stressful situation with a family . She does not take any anticoagulation for atrial fibrillation despite her [id number] being 3, however she does have paroxysmal atrial fibrillation she will need to discuss this further with her client insights consultant. EKG Interpretation EKG #1: EKG Interpretation: Sinus rhythm, heart rate of 91, QT 369, no ST changes Medication Administration(s) Medication Administration History Discontinued Medications Clonidine (Clonidine Hcl 0.1 Mg Tablet) 0.1 mg PO X1 ONE Stop: 03/03/25 15:24 Last Admin: 03/03/25 16:11 Dose: 0.1 mg Documented By: BRADY Magnesium Oxide (Magnesium Oxide 400 Mg Tablet) 400 mg PO X1 ONE Stop: 03/03/25 15:53 Last Admin: 03/03/25 16:12 Dose: 400 mg Documented By: BRADY Diagnosis Diagnoses ruled out and/or further discussions: A-fib w/RVR, stress, anxiety, GERD
[2025-03-03 15:28] LABS: Collection Type, Urine Catheter; Squamous Epithelial Cell,Urine 0 /hpf (0-5)
[2025-03-03 15:29] LABS: Basophils # (Auto) 0.1 Thou/mm3 (0.0-0.2); Basophils % (Auto) 1 % (0-2.5); Eosinophils # (Auto) 0.0 Thou/mm3 (0.0-0.5); Eosinophils % (Auto) 0 % (0-10); Hematocrit 40.1 % (36.0-46.0); Hemoglobin 13.8 g/dL (12.0-16.0); Immature Granulocytes Auto 0.04 Thou/mm3 (0.00-0.00); Lymphocytes # (Auto) 2.4 Thou/mm3 (1.0-4.8); Lymphocytes % (Auto) 20 % (10-50); Mean Corpuscular HGB Conc 34.4 g/dl (31.0-37.0); Mean Corpuscular Hemoglobin 30.3 pg (25.0-35.0); Mean Corpuscular Volume 88 fL (80-100); Monocytes # (Auto) 0.4 Thou/mm3 (0.0-0.8); Monocytes % (Auto) 4 % (0-12); Neutrophils # (Auto) 9.1 Thou/mm3 (1.8-7.7); Neutrophils % (Auto) 76 % (37-80); Nucleated Red Blood Cell # 0.00 Thou/mm3 (0.00-0.00); Nucleated Red Blood Cell % 0 /100 WBC (0); Platelet Count 345 Thou/mm3 (140-440); RDW Standard Deviation 41.2 fL (36.4-46.3); Red Blood Count 4.56 Miln/mm3 (4.00-5.20); White Blood Count 12.0 Thou/mm3 (3.6-11.0)
[2025-03-03 15:33] LABS: Bilirubin,Urine Negative (Negative); Blood,Urine Negative (Negative); Clarity,Urine Clear (Clear/Hazy); Color,Urine Colorless (Lt Yel-Yel); Culture Indicated,Urine Not Indicated; Glucose, Urine Negative (Negative); Ketones,Urine Negative (Negative); Leukocyte Esterase,Urine Negative (Negative); Nitrite,Urine Negative (Negative); PH,Urine 6.5 (5.0-7.0); Protein,Urine Negative (Neg - Trace); RBC,Urine 1 /hpf (0-3); Specific Gravity,Urine 1.009 (1.001-1.035); Urobilinogen,Urine Negative mg/dL (0.0-1.0); WBC,Urine 5 /hpf (0-5)
[2025-03-03 15:49] LABS: Alanine Aminotransferase 22 U/L (10-49); Albumin, Serum 5.1 gm/dL (3.5-5.0); Alkaline Phosphatase 112 U/L (46-116); Anion Gap 13 (7-16); BUN/Creatinine Ratio 7 Ratio (12-20); Blood Urea Nitrogen 5 mg/dL (9-23); Calcium 10.0 mg/dL (8.3-10.6); Calcium (Corrected) 10.0 mg/dL (8.5-10.1); Carbon Dioxide 27.4 mMol/L (20.0-31.0); Chloride 104 mMol/L (98-107); Creatinine (Component) 0.7 mg/dL (0.6-1.3); Estimated Creatinine Clearance 79.1 mL/min (>60); Glucose 124 mg/dL (74-106); Magnesium 1.9 mg/dL (1.6-2.6); Osmolality,Calculated 285 (275-295); Potassium 4.0 mMol/L (3.4-5.1); Sodium 144 mMol/L (136-145); Troponin I < 0.002 ng/mL (0.0-0.045); eGFR > 60 See Note
[2025-03-03 15:51] LABS: Albumin/Globulin Ratio 2.0 (1.2-2.2); Aspartate Amino Transferase 23 U/L (0-34); Bilirubin,Total 1.6 mg/dL (0.3-1.2); Free T4 (Free Thyroxine) 1.37 ng/dL (0.89-1.76); Globulin 2.5 gm/dL (2.3-3.5); Thyroid Stimulating Hormone 1.27 uIU/mL (0.55-4.78); Total Protein 7.6 gm/dL (5.7-8.2)
[2025-03-03 16:11] VITALS: BP 180/82; PULSE 84
[2025-03-03] MEDS: MAGNESIUM OXIDE 400 MG TABLET PO (16:12)
[2025-03-03 16:27] LABS: Influenza A Ag Negative; Influenza B Ag Negative
[2025-03-03 16:45] LABS: Amphetamine/Methamp Scrn,U Negative (Negative); Barbiturate Screen,Urine Negative (Negative); Benzodiazepines Screen,Urine Negative (Negative); Benzoylecgonine Screen, Ur Negative (Negative); Fentanyl Screen,Urine Negative (Negative); Opiate Screen,Urine Negative (Negative); THC Screen,Urine Negative (Negative)
[2025-03-03 17:55] VITALS: BP 122/66; PULSE 81; RESP 18; TEMP 36.8; O2SAT 98
== END 2025-03-03 18:07 | disposition home or self-care (01) ==
PROVIDERS: PCP Registered Nurse
DX: F41.1 Generalized anxiety disorder (principal); E11.9 Type 2 diabetes mellitus without complications; E78.5 Hyperlipidemia, unspecified; I10 Essential (primary) hypertension; I48.0 Paroxysmal atrial fibrillation; K21.9 Gastro-esophageal reflux disease without esophagitis
CPT/HCPCS: 36415; 80053; 80307; 81001; 83735; 84439; 84443; 84484; 85025; 87502; 87811; 93005; 99283; A9270